=== PATIENT | male | born 1990 | race Hispanic/Latino ===

== ENCOUNTER 2023-10-30 22:13 | Emergency (ER) | payer SELFPAY ==
[2023-10-30 22:18] VITALS: BP 133/74
--- NOTE | 2023-10-31 02:58 | ED.GENMED ---
History of Present Illness
<Matilde Dos Santos DO - Last Filed: 10/31/23 07:54>
General
Chief Complaint: Eye Problems
Time Seen by Provider: 10/31/23 02:16
<MANASA Flor - Last Filed: 10/31/23 03:34>
General
Source: patient
Exam Limitations: none
Travel History
Have you had any contact with someone who has COVID-19?: No
Do you have any symptoms of coronavirus? Fever > 100 degrees, chills, cough, shortness of breath, sore throat, loss of taste or smell, muscle aches, or headache?: No
History of Present Illness
History of Present Illness:
33 year old male presents with L eye foreign body x3 days. Patient was grinding metal in his garage without eye protection when he felt a piece of metal enter his left eye. He reports pain, irritation and photophobia and mild increased lacrimation
with his left eye. He did try flushing his eye with water and eye drops that did not provide any relief. He does wear glasses, but denies contact use. He denies discharge, vision changes, blurriness, or headaches. He denies SOB, CP, or fever. He
does not recall last Tdap.
Review of Systems
<MANASA Flor - Last Filed: 10/31/23 03:34>
Review of Systems
Allergies reviewed?: Yes
All Other Systems: Not applicable
Constitutional: Reports no symptoms
EENT: Reports other (Eye pain, erythema, photophobia )
Respiratory: Reports no symptoms
Cardiac: Reports no symptoms
ABD/GI: Reports no symptoms
: Reports no symptoms
Musculoskeletal: Reports no symptoms
Skin: Reports no symptoms
Neurological: Reports no symptoms
Endocrine: Reports no symptoms
Hematologic/Lymphatic: Reports no symptoms
Psychiatric: Reports no symptoms
Phy Exam
<ST BasiaPA - Last Filed: 10/31/23 03:34>
General Physical Exam
General Presentation: well appearing and no apparent distress
General Skin: warm and dry
General Habitus: normal
General Mental: alert
General Hydration: appears well hydrated
ENT Exam
ENT Exam: EOMI, pharynx normal, neck supple and normocephalic
Eye Exam
Eye Exam: PERRL and other (Conjunctival injection)
Cornea Exam: foreign body: Left
Cardiovascular Exam
Cardiovascular Exam: regular rate/rhythm, no edema, no murmur and normal peripheral pulses
Pulmonary Exam
Pulmonary Exam: lungs clear, no respiratory distress, no rales, no crackles, no rhonchi, no stridor, no wheezing and no cough
Gastrointestinal Exam
Gastrointestinal Exam: normal bowel sounds, non tender, soft, no organomegaly, no pulsatile mass and non distended
Neurological Exam
Neurological Exam: alert, oriented x3, no motor deficits and speech normal
Musculoskeletal Exam
Musculoskeletal Exam: full ROM and no edema
Skin Exam
Skin Exam: normal color, warm/dry, no rash and no petechia
Psychiatric Exam
Psychiatric Exam: normal mood/affect
Course
<Matilde Dos Santos DO - Last Filed: 10/31/23 07:54>
Orders/Labs/Results
Orders:
Orders
10/31/23 02:57
Gentamicin [Genoptic 0.3% Eye Drops] See Dose Instructions OPHTH NOW STA
Tetanus/Diphth/Acelpertussis [Adacel] 0.5 ml IM .ONCE ONE
10/31/23 03:04
Eye Procedures- Treatment ONCE
Location: Left Eye
Type of Procedure: Irrigate - NSS
Vital Signs
Initial and Last Documented VS:
Initial Vital Signs
Temp Pulse Resp BP Pulse Ox
98.6 F 85 20 133/74 98
10/30/23 22:18 10/30/23 22:18 10/30/23 22:18 10/30/23 22:18 10/30/23 22:18
Last Documented Vital Signs
Temp Pulse Resp BP Pulse Ox
98.6 F 85 20 133/74 98
10/30/23 22:18 10/30/23 22:18 10/30/23 22:18 10/30/23 22:18 10/30/23 22:18
<MANASA Flor - Last Filed: 10/31/23 03:34>
Orders/Labs/Results
Orders:
Orders
10/31/23 02:57
Gentamicin [Genoptic 0.3% Eye Drops] See Dose Instructions OPHTH NOW STA
Tetanus/Diphth/Acelpertussis [Adacel] 0.5 ml IM .ONCE ONE
10/31/23 03:04
Eye Procedures- Treatment ONCE
Location: Left Eye
Type of Procedure: Irrigate - NSS
Vital Signs
Initial and Last Documented VS:
Initial Vital Signs
Temp Pulse Resp BP Pulse Ox
98.6 F 85 20 133/74 98
10/30/23 22:18 10/30/23 22:18 10/30/23 22:18 10/30/23 22:18 10/30/23 22:18
Last Documented Vital Signs
Temp Pulse Resp BP Pulse Ox
98.6 F 85 20 133/74 98
10/30/23 22:18 10/30/23 22:18 10/30/23 22:18 10/30/23 22:18 10/30/23 22:18
Procedures
<Matilde Dos Santos DO - Last Filed: 10/31/23 07:54>
Eye Procedures
Anesthesia: Opthaine
Conjuctival foreign body removal was superficial- removed by: scraping
Removal of corneal foreign body with: slit lamp, use of corneal magdi and corneal scraping
Foreign body removal was: complete
After removal was there a corneal abrasion?: corneal abrasion present
<MANASA Flor - Last Filed: 10/31/23 03:34>
MDM/Problems Addressed
Differential Diagnosis Includes:
Foreign body in cornea vs corneal abrasion. Eye exam revealed foreign body in cornea. Tetracaine given to numb left eye. Slit lamp used and 18 gauge needle to remove piece of metal. Corneal magdi hole made to remove residual rest ring. Patient
tolerated procedure well. Will give Tdap and Gentamicin 1 drop QID. Work note provided for tomorrow.
<Matilde Dos Santos DO - Last Filed: 10/31/23 07:54>
*Pulse Oximetry
Patient hypoxic: no
*Critical Care Note
Total Time (30-74mins, 75-104mins- exclusive of procedures): Not Applicable
ED Attending Note
<Matilde Dos Santos DO - Last Filed: 10/31/23 07:54>
ED Attending Note
Patient seen and examined by attending physician: Yes
I performed the substantive portion of visit, reviewed & personally made and approve the management plan that is documented in note by myself or MODESTO.: Yes
I performed a history and physical exam of patient and discussed management with resident, I reviewed resident's note and agree with documented findings and plan of care.: Yes
ED Attending Note:
This is a 33-year-old gentleman with no significant past medical history who states he was working in his garage, grinding metal 2 days ago and feels he got a piece of metal in his left eye. No improvement with flushing his eye and he can see a
retained piece of metal around 7 o'clock position on his cornea. He admits to continued irritation, foreign body sensation, redness of his eye, mild photophobia and frequent tearing. He denies headache, no vision difficulty. No history of similar
episodes in the past. He does not wear corrective lenses.
He is unsure as to his last tetanus booster.
He takes no medicines on a daily basis.
33-year-old gentleman appears his stated age, bright and alert, pleasant, appears in no acute distress.
HEENT: Left eye conjunctiva is moderately injected without chemosis, scant intermittent clear tearing from left eye. Pupils are equal reactive to light, extraocular muscles intact.
After tetracaine instilled patient reports significant relief of eye pain and no further foreign body sensation.
Left eye visualized with fluorescein stain and Mckeon lamp revealing metallic foreign body 7 o'clock position of the cornea. Anterior chamber is clear.
Utilizing slit-lamp and additional tetracaine, metallic foreign body removed with 18-gauge needle and residual rust ring removed with corneal bur.
Patient tolerated procedure well.
Will update Tdap.
Will initiate gentamicin ophthalmic drops.
As patient lacks healthcare coverage we will plan for prompt follow-up with our free clinic for recheck and further referral to ophthalmology as needed.
<MANASA Flor - Last Filed: 10/31/23 03:34>
-
Portions of this chart may have been created with voice recognition software.� Occasional wrong word or��sound alike� substitutions may have occurred due to the inherent limitations of voice recognition software.
Discharge Plan
Departure
Patient Disposition: Home (Routine Discharge)
Date of Disposition: 10/31/23
Time of Disposition: 03:05
Patient with high blood pressure during this ER visit?: No
Condition: Good
Discharge Problem:
metallic foreign body L cornea
Instructions: How to Use Eye Drops, Foreign Body in Eye (DC)
Prescriptions:
New
gentamicin 0.3 % drops
1 drp ophthalmic (eye) QID Qty: 5 0RF
tetracaine HCl (PF) 0.5 % drops
1 drp ophthalmic (eye) TIDPRN PRN (Reason: eye pain) 2 Days Qty: 2.5 0RF
Referrals:
[facility] - Call in 1-3 days for appt
Stand Alone Forms: Return to Work
Interventions
Interventions:
*Risk Screen - Suicide Last Done: 10/31/23 02:29
*General Assessment Last Done: 10/30/23 22:24
*Neglect/Abuse Screening Last Done: 10/31/23 02:29
ED- Fall Risk Assessment Last Done: 10/31/23 02:06
*ED COVID-19 Vaccine History Last Done: 10/30/23 22:23
*Nursing Disposition Last Done: 10/31/23 03:15
Discharge Date and Time
Discharge Date/Time: 10/31/23 03:15
Print Language: UPPER SORBIAN
[2023-10-31] MEDS: GENOPTIC 0.3% EYE DROPS 1 DROP OPHTH (03:07)
[2023-10-31] MEDS: ADACEL 0.5 ML IM (03:08)
== END 2023-10-31 03:15 | disposition home or self-care (01) ==
LOC: EMR 22:13
PROVIDERS: EMERGENCY PHYSICIAN Emergency Medicine
DX: T15.02XA Foreign body in cornea, left eye, initial encounter (principal); W44.G0XA Other non-organic objects unspecified, entering into or through a natural orifice, initial encounter; Z23 Encounter for immunization
CPT/HCPCS: 99284; 65222; 90471; 90715

== ENCOUNTER → 2024-04-14 10:56 | Outpatient (REF) | payer OTHER, SELFPAY ==
[2024-04-14 12:31] LABS: Mean Corp Hgb Conc. 34.1 g/dL (33.0-37.0); Mean Corpuscular Hgb 28.1 pg (27.0-31.0); Mean Corpuscular Volume 82.4 fL (80.0-94.0); Mean Platelet Volume 10.9 fL (7.4-10.4); Platelet Count 254 10^3/uL (130-400); Red Blood Cell Count 5.34 10^6/uL (4.70-6.10); Red Cell Dist. Width 13.1 % (11.5-14.5); White Blood Cell Count 6.1 10^3/uL (4.8-10.8)
[2024-04-14 13:11] LABS: ALT (SGPT) 47 U/L (0-50); AST (SGOT) 33 U/L (17-59); Albumin 4.6 g/dl (3.5-5.0); Alkaline Phosphatase 64 U/L (38-126); Blood Urea Nitrogen 20 mg/dl (9-20); Calcium 9.5 mg/dl (8.4-10.2); Carbon Dioxide 25 mmol/L (22-30); Chloride 104 mmol/L (98-107); Glucose 91 mg/dl (70-99); Potassium 4.5 mmol/L (3.5-5.1); Sodium 140 mmol/L (135-145); Total Bilirubin 0.6 mg/dl (0.2-1.3); Total Protein 7.5 g/dl (6.3-8.2); eGFR > 60.00
[2024-04-14 13:38] LABS: TSH Reflex To Free T4 2.08 uIU/ml (0.47-4.68)
== END ==
LOC: CLINIC 10:56
PROVIDERS: ATTENDING PHYSICIAN Nurse Practitioner Adult Health
DX: Z00.00 Encounter for general adult medical examination without abnormal findings (principal)
CPT/HCPCS: 36415; 80053; 84443; 85027